=== PATIENT | male | born 1945 | race Caucasian/White ===

== ENCOUNTER 2020-03-19 08:52 | Day surgery (SDC) | payer OTHER ==
[~2020-03-19] VITALS: Ht 180.3 cm; Wt 81.8 kg
[2020-03-19 09:17] VITALS: BP 121/77
[2020-03-19] MEDS ORDERED: LOSA25TA25 PO (09:30)
[2020-03-19] MEDS ORDERED: B12 INJ (09:30)
[2020-03-19] MEDS ORDERED: DABI150C PO (09:30)
[2020-03-19] MEDS ORDERED: METO100T5 PO (09:30)
[2020-03-19] MEDS ORDERED: SPIR50TA PO (09:30)
[2020-03-19] MEDS ORDERED: TADA5TAB2 PO (09:30)
[2020-03-19] MEDS ORDERED: testosterone INJ (09:30)
[2020-03-19] MEDS ORDERED: PROPOFOL 10 MG/ML, 20ML ONE (11:01)
== END 2020-03-19 12:04 | disposition home or self-care (01) ==
LOC: CACL 08:52
PROVIDERS: ATTEND Internal Medicine Cardiovascular Disease
DX: I48.91 Unspecified atrial fibrillation (principal); I10 Essential (primary) hypertension; I42.9 Cardiomyopathy, unspecified; Z79.01 Long term (current) use of anticoagulants; Z79.899 Other long term (current) drug therapy
CPT/HCPCS: 92960; J2704

== ENCOUNTER → 2020-03-27 | Outpatient (CLI) | payer OTHER ==
[~2020-03-27] MED LIST: B12 INJ; DABI150C PO; LOSA25TA25 PO; METO100T5 PO; REGADENOSON 0.4 MG/5 ML SYRINGE ONE; SPIR50TA PO; TADA5TAB2 PO; testosterone INJ
== END | disposition home or self-care (01) ==
LOC: CFH 11:40
PROVIDERS: ATTEND Internal Medicine Cardiovascular Disease
DX: I08.0 Rheumatic disorders of both mitral and aortic valves (principal); I10 Essential (primary) hypertension; I42.0 Dilated cardiomyopathy
CPT/HCPCS: 78452; 93017; 93306; A9502; J2785

== ENCOUNTER 2020-06-18 11:44 | Day surgery (SDC) | payer OTHER ==
[~2020-06-18] VITALS: Ht 180.3 cm; Wt 81.8 kg
[~2020-06-18 11:44] MED LIST changes: -REGADENOSON 0.4 MG/5 ML SYRINGE ONE
[2020-06-18] MEDS ORDERED: FLEC100T PO (12:10)
[2020-06-18 12:14] VITALS: BP 95/73
[2020-06-18 12:30] LABS: BASOPHILS # (AUTO) 0.06 x10^3/uL (0-0.1); BASOPHILS % (AUTO) 1 % (0-1); EOSINOPHILS # (AUTO) 0.69 x10^3/uL (0-0.4); EOSINOPHILS % (AUTO) 9 % (1-7); LYMPHOCYTES # (AUTO) 1.24 x10^3/uL (1-3.4); LYMPHOCYTES % (AUTO) 17 % (22-44); MD NO; MEAN CORPUSCULAR HEMOGLOBIN 29.9 pg (27.5-34.5); MEAN CORPUSCULAR HGB CONC 32.3 g/dL (33.2-36.2); MEAN PLATELET VOLUME 9.9 fL (7.4-10.4); MONOCYTES # (AUTO) 0.79 x10^3/uL (0.2-0.8); MONOCYTES % (AUTO) 11 % (2-9); NEUTROPHILS # (AUTO) 4.73 x10^3/uL (1.8-6.8); NEUTROPHILS % (AUTO) 63 % (42-75); PLATELET COUNT 206 x10^3/uL (130-400); RED BLOOD COUNT 5.53 x10^6/uL (4.38-5.82); RED CELL DISTRIBUTION WIDTH 18.3 % (9.4-14.8)
[2020-06-18 12:39] LABS: ANION GAP 5 mmol/L (5-15); CALCIUM 9.1 mg/dL (8.5-10.1); CHLORIDE 112 mmol/L (98-107); CREATININE 1.29 mg/dL (0.7-1.3)
[2020-06-18] MEDS ORDERED: EPHEDRINE 50 MG/ML, 1ML ONE (12:42)
[2020-06-18] MEDS ORDERED: PROPOFOL 10 MG/ML, 20ML ONE (12:42)
[2020-06-18] MEDS ORDERED: METO-93 PO (13:30)
== END 2020-06-18 14:17 | disposition home or self-care (01) ==
LOC: CACL 11:44
PROVIDERS: ATTEND Internal Medicine Cardiovascular Disease
DX: I48.92 Unspecified atrial flutter (principal); I42.0 Dilated cardiomyopathy; I10 Essential (primary) hypertension; Z79.01 Long term (current) use of anticoagulants; Z79.899 Other long term (current) drug therapy; Z98.890 Other specified postprocedural states
CPT/HCPCS: 36415; 80048; 85025; 92960; 93005; J2704

== ENCOUNTER → 2020-10-08 | Outpatient (CLI) | payer OTHER ==
[~2020-10-08] MED LIST changes: +FLEC100T PO; +METO-93 PO
[2020-10-08 12:14] LABS: ALBUMIN 3.6 g/dL (3.4-5.0); CALCIUM 9.3 mg/dL (8.5-10.1)
[2020-10-08 12:20] LABS: ALANINE AMINOTRANSFERASE 21 U/L (12-78); ALKALINE PHOSPHATASE 96 U/L (45-117); BILIRUBIN,TOTAL 0.8 mg/dL (0.2-1.0); CREATININE 1.17 mg/dL (0.7-1.3); TOTAL PROTEIN 7.6 g/dL (6.4-8.2)
[2020-10-08 12:30] LABS: ANION GAP 4 mmol/L (5-15); CHLORIDE 111 mmol/L (98-107)
== END | disposition home or self-care (01) ==
LOC: STAR 10:45
PROVIDERS: ATTEND Orthopaedic Surgery
DX: Z01.818 Encounter for other preprocedural examination (principal); M19.012 Primary osteoarthritis, left shoulder; R00.1 Bradycardia, unspecified; R94.31 Abnormal electrocardiogram [ECG] [EKG]
CPT/HCPCS: 36415; 80053; 87081; 93005

== ENCOUNTER → 2021-03-22 | Outpatient (CLI) | payer OTHER | END | disposition home or self-care (01) | LOC: CFH 10:39 | PROVIDERS: ATTEND Internal Medicine Cardiovascular Disease | DX: I08.0 Rheumatic disorders of both mitral and aortic valves (principal); I42.9 Cardiomyopathy, unspecified; I10 Essential (primary) hypertension; I48.0 Paroxysmal atrial fibrillation | CPT/HCPCS: 93306 ==

== ENCOUNTER → 2021-03-31 | Outpatient (CLI) | payer OTHER ==
[~2021-03-31] MED LIST changes: +OMNIPAQUE 350 MG/ML, 100ML BOTTLE ONE
== END | disposition home or self-care (01) ==
LOC: CFH 14:20
PROVIDERS: ATTEND Student in an Organized Health Care Education/Training Program
DX: I71.2 Thoracic aortic aneurysm, without rupture (principal); J94.8 Other specified pleural conditions; D73.89 Other diseases of spleen; M47.816 Spondylosis without myelopathy or radiculopathy, lumbar region; Z82.49 Family history of ischemic heart disease and other diseases of the circulatory system
CPT/HCPCS: 71275; 74175; 82565; Q9967